=== PATIENT | male | born 1980 | race Caucasian/White ===

== ENCOUNTER 2019-07-17 15:28 | Emergency (ER) | payer OTHER, SELFPAY ==
[2019-07-17 15:45] VITALS: BP 112/74; PULSE 85; RESP 16; TEMP 36.5; O2SAT 96; BMI 32.3
--- NOTE | 2019-07-17 17:10 | DI.US.S_ITS ---
PROCEDURE: US PERIPH VENOUS LOW EXTREM RT INDICATIONS: KNEE PAIN TECHNIQUE: Real-time imaging, as well as color and pulse Doppler interrogation, were performed of the lower extremity deep veins from the inguinal ligament to the popliteal fossa. COMPARISON: [facility], CR, XR KNEE RT 3V, 07/17/2019, 17:12. FINDINGS: The common femoral, femoral and popliteal veins are normally compressible, and free of intraluminal thrombus. Color and pulse Doppler demonstrate normal phasic intraluminal flow. There is normal augmentation response to distal compression maneuver. There is a fluid collection seen superior to the patella, which measures 6.3 x 1.2 x 4 cm, which demonstrates a simple appearance. IMPRESSION: Negative for deep venous thrombosis. Simple fluid collection seen superior to the patella, which most likely relates to joint effusion. Dictated by: Jt Diehl M.D. on 07/17/2019 at 17:03 Approved by: Jt Diehl M.D. on 07/17/2019 at 17:04
--- NOTE | 2019-07-17 17:13 | DI.RAD.S_ITS ---
PROCEDURE: XR KNEE RT 3V INDICATIONS: R knee swelling and pain TECHNIQUE: 3 views of the knee were acquired. COMPARISON: [facility], , KNEE 3V RIGHT, 04/17/2014, 11:08. FINDINGS: Bones: No fractures or dislocations. No suspicious bony lesions. Soft tissues: There is a moderate joint effusion. No suspicious soft tissue calcifications. IMPRESSION: Moderate joint effusion. Dictated by: Jt Diehl M.D. on 07/17/2019 at 16:33 Approved by: Jt Diehl M.D. on 07/17/2019 at 16:34
--- NOTE | 2019-07-17 17:16 | ED.LOWEXIN ---
HPI - Extremity Injury (Lower) <BIANCA Dean - Last Filed: 07/17/19 21:49> General Chief Complaint: Extremity Injury, Lower Stated Complaint: right knee swelling and pain, trouble walking Time Seen by Provider: 07/17/19 17:04 History of Present Illness HPI Narrative: 38yo male with a history of gout, presents to the emergency department for right knee swelling for the past 5 days. Patient states he occasionally gets gout in his feet and occasionally on his left knee. He states these episodes, resolved quickly. Initially he woke up noticing right knee pain and swelling and initially thought this was gout however, the swelling continued and the pain has been increasing. Patient reports a dull aching 8/10 pain that is worse with movement and palpation. Patient states it is difficult to bend his knee due to the pain and swelling. 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 He denies any trauma to the area. Patient denies any fevers, chills, nausea, vomiting, diarrhea, chest pain, shortness of breath, history of knee injuries in the past, or any other concerns. Related Data Allergies Allergy/AdvReac Type Severity Reaction Status Date / Time shellfish derived Allergy Severe THROAT Unverified 06/17/17 12:31 [SHELLFISH DERIVED] SWELLING SEAFOOD Allergy Severe THROAT Uncoded 06/17/17 12:31 SWELLS UP Review of Systems <BIANCA Dean - Last Filed: 07/17/19 21:49> Review of Systems Narrative: REVIEW OF SYSTEMS: GENERAL: Denies fever or chills. HENT: No head trauma. CARDIOVASCULAR: No chest pain or syncope. RESPIRATORY: No shortness of breath or cough. GASTROINTESTINAL: No nausea, vomiting, diarrhea, or constipation. MUSCULOSKELETAL: Complains of right knee pain and swelling, see HPI. INTEGUMENTARY: No rash, lesions, or pruritus. Patient History <BIANCA Dean - Last Filed: 07/17/19 21:49> Medical History No significant medical problems (Acute) Social History Smoking Status: Never smoker Smoking Status: Never smoker alcohol intake frequency: holidays/special occasions only Substance Use Type: does not use Exam <BIANCA Dean - Last Filed: 07/17/19 21:49> Initial Vital Signs Initial Vital Signs: Vital Signs Temperature 97.7 F 07/17/19 15:45 Pulse Rate 85 07/17/19 15:45 Respiratory Rate 16 07/17/19 15:45 Blood Pressure 112/74 07/17/19 15:45 Pulse Oximetry 96 07/17/19 15:45 PHYSICAL EXAMINATION: GENERAL: Well groomed, alert, and cooperative. Answers questions promptly and appropriately. Vital signs noted. HENT: Normocephalic, atraumatic. EYES: Symmetrical, sclera white, no periorbital swelling. CARDIOVASCULAR: S1 and S2 sounds normal. RESPIRATORY: Normal respiratory rate, trachea midline, airway patent. No stridor, nasal flaring or accessory muscle use. MUSCULOSKELETAL: Significant swelling noted to right knee particularly around patella. Tenderness with palpation to patella, patient only able to bend his knee approximately 30? due to pain. Mild to moderate erythema, slight increased temp. Moderate right lower quadrant calf tenderness. No ankle or lower leg tenderness to palpation. EXTREMITIES: CMS intact. Pedal pulses 2+ and intact bilaterally. SKIN: Warm, dry, soft, appropriate color for ethnicity. No lesions, rashes, or wounds. NEURO: Alert and Oriented X 3. No sensory deficits. PSYCH: Appropriate affect and mood. <Fernandez Miller DO - Last Filed: 07/17/19 23:18> Initial Vital Signs Initial Vital Signs: Vital Signs Temperature 97.7 F 07/17/19 15:45 Pulse Rate 85 07/17/19 15:45 Respiratory Rate 16 07/17/19 15:45 Blood Pressure 112/74 07/17/19 15:45 Pulse Oximetry 96 07/17/19 15:45 Course <BIANCA Dean - Last Filed: 07/17/19 21:49> Course Course Narrative: Patient reports improved pain after administration ibuprofen. Orders Ordered: ED Orders 07/17/19 17:10 US periph venous low extrem rt Stat 07/17/19 17:13 XR knee RT 3V Stat 07/17/19 17:51 C-Reactive Protein Quant Stat Complete Blood Count AUTO DIFF Stat Comprehensive Metabolic Panel Stat Erythrocyte Sedimentation Rate Stat Uric Acid Stat Discontinued Medications Ibuprofen (Advil) 400 mg PO NOW ONE Stop: 07/17/19 17:44 Last Admin: 07/17/19 17:52 Dose: 400 mg Documented by: JIMMY Ketorolac Tromethamine (Toradol) 30 mg IV NOW ONE Stop: 07/17/19 17:19 Last Admin: 07/17/19 17:43 Dose: Not Given Documented by: JIMMY Consultations Consultation #1: Patient staffed with Dr. Miller, discussed, symptoms, and test results. Vital Signs Vital signs: Vital Signs - 8 hr 07/17/19 15:45 07/17/19 20:15 Temperature 97.7 F Pulse Rate 85 76 Respiratory Rate 16 18 Blood Pressure 112/74 133/91 H Pulse Oximetry 96 99 <Fernandez Miller DO - Last Filed: 07/17/19 23:18> Orders Ordered: ED Orders 07/17/19 17:10 US periph venous low extrem rt Stat 07/17/19 17:13 XR knee RT 3V Stat 07/17/19 17:51 C-Reactive Protein Quant Stat Complete Blood Count AUTO DIFF Stat Comprehensive Metabolic Panel Stat Erythrocyte Sedimentation Rate Stat Uric Acid Stat Discontinued Medications Ibuprofen (Advil) 400 mg PO NOW ONE Stop: 07/17/19 17:44 Last Admin: 07/17/19 17:52 Dose: 400 mg Documented by: JIMMY Ketorolac Tromethamine (Toradol) 30 mg IV NOW ONE Stop: 07/17/19 17:19 Last Admin: 07/17/19 17:43 Dose: Not Given Documented by: JIMMY Vital Signs Vital signs: Vital Signs - 8 hr 07/17/19 15:45 07/17/19 20:15 Temperature 97.7 F Pulse Rate 85 76 Respiratory Rate 16 18 Blood Pressure 112/74 133/91 H Pulse Oximetry 96 99 MDM - Extremity Injury (Lower) <BIANCA Dean - Last Filed: 07/17/19 21:49> Medical Records Attestation: I reviewed the patient's medical records. Lab Data Attestation: I reviewed the patient's lab results. Result diagrams: 07/17/19 17:51 07/17/19 17:51 Labs: Lab Results 07/17/19 07/17/19 07/17/19 Range/Units 17:51 17:51 17:51 WBC 8.6 (4.5-11.0) X10^3/uL RBC 4.33 L (4.5-5.9) X10^6/uL Hgb 13.2 L (13.5-17.5) g/dL Hct 38.3 L (41-53) % MCV 88.4 (80-100) fL MCH 30.6 (26-34) PG MCHC 34.5 (30-36) % RDW 12.9 (11.6-14.8) % Plt Count 273 (150-400) X10^3/uL Neut % (Auto) 70.7 (50-75) % Lymph % (Auto) 18.9 L (25-40) % [place] % (Auto) 6.7 (3-14) % Eos % (Auto) 3.4 (2-4) % Baso % (Auto) 0.3 (0-2) % Neut # (Auto) 6100 (1775-7197) /uL Lymph # (Auto) 1600 (5828-7555) /uL [place] # (Auto) 600 (0-900) /uL Eos # (Auto) 300 (0-450) /uL Baso # (Auto) 0 (0-100) /uL ESR 28 H (0-15) MM/HR Sodium 141 (137-145) mmol/L Potassium 4.3 (3.4-5.1) mmol/L Chloride 106 (98-107) mmol/L Carbon Dioxide 27 (22-32) mmol/L BUN 20 (9-20) mg/dL Creatinine 1.01 (0.66-1.25) mg/dL Estimated GFR > 60.0 (>60) mL/min BUN/Creatinine Ratio 19.8 (6-22) Glucose 117 H (70-100) mg/dL Uric Acid 6.9 (3.5-8.5) mg/dL Calcium 9.1 (8.4-10.2) mg/dL Total Bilirubin 0.4 (0.2-1.3) mg/dL AST 47 (17-59) IU/L ALT 66 H (<50) IU/L Alkaline Phosphatase 64 (38-126) U/L C-Reactive Protein 3.6 H (<1.0) mg/dL Total Protein 7.3 (6.3-8.2) g/dL Albumin 4.2 (3.5-5.0) g/dL Globulin 3.1 (1.7-4.1) g/dL Albumin/Globulin Ratio 1.4 (1.0-2.8) Imaging Data Extremity x-ray #1: Radiologist's Impression: [address] [address] XRay Report Signed Patient: Alan Jackson [facility]#: [id number] : 1980Acct:[id number] Age/Sex: 38 / MDate of Service: 07/17/19 Loc: ED Accession Number: [id number] Procedure: XR knee RT 3V Ordering Provider: Francesca Berman PROCEDURE: XR KNEE RT 3V INDICATIONS: R knee swelling and pain TECHNIQUE: 3 views of the knee were acquired. COMPARISON: [facility], KNEE 3V RIGHT, 04/17/2014, 11:08. FINDINGS: Bones: No fractures or dislocations. No suspicious bony lesions. Soft tissues: There is a moderate joint effusion. No suspicious soft tissue calcifications. IMPRESSION: Moderate joint effusion. Dictated by: Jt Diehl M.D. on 07/17/2019 at 16:33 Approved by: Jt Diehl M.D. on 07/17/2019 at 16:34 US - DVT: Radiologist's Impression: [address] [place] [id number] Ultrasound Report Signed Patient: Alan Jackson [facility]#: [id number] : 1980Acct:[id number] Age/Sex: 38 / MDate of Service: 07/17/19 Loc: ED Accession Number: [id number] Procedure: US periph venous low extrem rt Ordering Provider: Francesca Berman PROCEDURE: US PERIPH VENOUS LOW EXTREM RT INDICATIONS: KNEE PAIN TECHNIQUE: Real-time imaging, as well as color and pulse Doppler interrogation, were performed of the lower extremity deep veins from the inguinal ligament to the popliteal fossa. COMPARISON: [facility], XR KNEE RT 3V, 07/17/2019, 17:12. FINDINGS: The common femoral, femoral and popliteal veins are normally compressible, and free of intraluminal thrombus. Color and pulse Doppler demonstrate normal phasic intraluminal flow. There is normal augmentation response to distal compression maneuver. There is a fluid collection seen superior to the patella, which measures 6.3 x 1.2 x 4 cm, which demonstrates a simple appearance. IMPRESSION: Negative for deep venous thrombosis. Simple fluid collection seen superior to the patella, which most likely relates to joint effusion. Dictated by: Jt Diehl M.D. on 07/17/2019 at 17:03 Approved by: Jt Diehl M.D. on 07/17/2019 at 17:04 [facility] Narrative Medical decision making narrative: 38-Male presents emergency department for nontraumatic right knee swelling. Suspect patient's symptoms are most likely caused by bursitis due to age of swelling, patient reports that he kneels often at work, and lack of other concerning symptoms such as fever or direct trauma. Additionally, patient has elevated inflammatory markers. Less likely septic joint, patient's has a normal white blood cell count and no signs of infection such as fever, tachycardia, or general malaise. Suspect some systemic signs since this has been ongoing for 4-5 days. Less likely gout due to normal uric acid and this is inconsistent with patient's previous episodes of gout Less likely arthritis the swelling appears to be above and external to the joint. Less likely DVT, Dodge cyst, or fracture to due lack of concerning findings on imaging. Patient was encouraged to take NSAIDs and use an Sagar wrap to help with inflammation and swelling. He was referred to his primary care provider for further follow-up. Patient agreed to plan of care verbalized understanding. <Fernandez Miller DO - Last Filed: 07/17/19 23:18> Lab Data Labs: Lab Results 07/17/19 07/17/19 07/17/19 Range/Units 17:51 17:51 17:51 WBC 8.6 (4.5-11.0) X10^3/uL RBC 4.33 L (4.5-5.9) X10^6/uL Hgb 13.2 L (13.5-17.5) g/dL Hct 38.3 L (41-53) % MCV 88.4 (80-100) fL MCH 30.6 (26-34) PG MCHC 34.5 (30-36) % RDW 12.9 (11.6-14.8) % Plt Count 273 (150-400) X10^3/uL Neut % (Auto) 70.7 (50-75) % Lymph % (Auto) 18.9 L (25-40) % [place] % (Auto) 6.7 (3-14) % Eos % (Auto) 3.4 (2-4) % Baso % (Auto) 0.3 (0-2) % Neut # (Auto) 6100 (8254-0828) /uL Lymph # (Auto) 1600 (5965-7071) /uL [place] # (Auto) 600 (0-900) /uL Eos # (Auto) 300 (0-450) /uL Baso # (Auto) 0 (0-100) /uL ESR 28 H (0-15) MM/HR Sodium 141 (137-145) mmol/L Potassium 4.3 (3.4-5.1) mmol/L Chloride 106 (98-107) mmol/L Carbon Dioxide 27 (22-32) mmol/L BUN 20 (9-20) mg/dL Creatinine 1.01 (0.66-1.25) mg/dL Estimated GFR > 60.0 (>60) mL/min BUN/Creatinine Ratio 19.8 (6-22) Glucose 117 H (70-100) mg/dL Uric Acid 6.9 (3.5-8.5) mg/dL Calcium 9.1 (8.4-10.2) mg/dL Total Bilirubin 0.4 (0.2-1.3) mg/dL AST 47 (17-59) IU/L ALT 66 H (<50) IU/L Alkaline Phosphatase 64 (38-126) U/L C-Reactive Protein 3.6 H (<1.0) mg/dL Total Protein 7.3 (6.3-8.2) g/dL Albumin 4.2 (3.5-5.0) g/dL Globulin 3.1 (1.7-4.1) g/dL Albumin/Globulin Ratio 1.4 (1.0-2.8) Discharge Plan Departure Patient Disposition: Home Clinical Impression: Bursitis Qualifiers: Bursitis location: knee Knee bursitis location: suprapatellar bursitis Laterality: right Qualified Code(s): M70.51 - Other bursitis of knee, right knee Effusion of knee Qualifiers: Laterality: right Qualified Code(s): M25.461 - Effusion, right knee Discharge Date/Time: 07/17/19 20:15 Instructions: DI for Bursitis Activity Restrictions/Additional Instructions: Thank you for entrusting me with your care today. As discussed, your x-ray and ultrasound are negative for any concerning findings. Your laboratory work did not show any signs of infection or gout. However, your inflammatory markers were elevated which is consistent with possible bursitis. Please use the Sagar bandage for the next 1-2 week. Take 500 mg of naproxen every 12 hours for the next 3-4 days to help with swelling, inflammation, and pain (this medication is available [id number]). Please follow-up up with your primary care provider or the orthopedic listed below. Return emergency department immediately for any new or worsening symptoms such as increasing swelling, increased redness, fevers, chills, worsening pain, or any other concerns. Referrals: Beltran Hernández PA-C [Advanced Corporate Counselor] - Nae Birmingham [Primary Care Provider] - Stand Alone Forms: Work Release Note <Fernandez Miller, DO - Last Filed: 07/17/19 23:18> Cosign ED Attending Cosignature Attestation: Dr Miller Co-Sign Statement: I was available for consultation during this patient's emergency department visit. This chart is signed by myself for administrative purposes only. I did not have direct contact with this patient during this visit. They were seen independently by the APC.
[2019-07-17] MEDS: IBUPROFEN 400 MG TABLET PO (17:52)
[2019-07-17 17:59] LABS: Add Manual Diff / Slide Review NO; Basophils Absolute Auto 0 /uL (0-100); Basophils Percent Auto 0.3 % (0-2); Eosinophils Absolute Auto 300 /uL (0-450); Eosinophils Percent Auto 3.4 % (2-4); Hematocrit 38.3 % (41-53); Hemoglobin 13.2 g/dL (13.5-17.5); Lymphocytes Absolute Auto 1600 /uL (1100-4500); Lymphocytes Percent Auto 18.9 % (25-40); Mean Corpuscular HGB Conc 34.5 % (30-36); Mean Corpuscular Hemoglobin 30.6 PG (26-34); Mean Corpuscular Volume 88.4 fL (80-100); Monocytes Absolute Auto 600 /uL (0-900); Monocytes Percent Auto 6.7 % (3-14); Neutrophils Absolute Auto 6100 /uL (1500-7000); Neutrophils Percent Auto 70.7 % (50-75); Platelet Count 273 X10^3/uL (150-400); Red Blood Cell Count 4.33 X10^6/uL (4.5-5.9); Red Cell Distribution Width 12.9 % (11.6-14.8); White Blood Cell Count 8.6 X10^3/uL (4.5-11.0)
[2019-07-17 18:17] LABS: Erythrocyte Sedimentation Rate 28 MM/HR (0-15)
[2019-07-17 18:20] LABS: Alanine Aminotransferase 66 IU/L (<50); Albumin 4.2 g/dL (3.5-5.0); Albumin Globulin Ratio 1.4 (1.0-2.8); Alkaline Phosphatase 64 U/L (38-126); Aspartate Aminotransferase 47 IU/L (17-59); BUN Creatinine Ratio 19.8 (6-22); Bilirubin Total 0.4 mg/dL (0.2-1.3); Blood Urea Nitrogen 20 mg/dL (9-20); C-Reactive Protein Quant 3.6 mg/dL (<1.0); Calcium 9.1 mg/dL (8.4-10.2); Carbon Dioxide 27 mmol/L (22-32); Chloride 106 mmol/L (98-107); Estimated Glomerular Filt Rate > 60.0 mL/min (>60); Globulin 3.1 g/dL (1.7-4.1); Glucose 117 mg/dL (70-100); HEMOLYSIS < 15 (0-50); Potassium 4.3 mmol/L (3.4-5.1); Sodium 141 mmol/L (137-145); Total Protein 7.3 g/dL (6.3-8.2); Uric Acid 6.9 mg/dL (3.5-8.5)
[2019-07-17 20:15] VITALS: BP 133/91; PULSE 76; RESP 18; O2SAT 99
== END 2019-07-17 20:15 | disposition home or self-care (01) ==
PROVIDERS: Emergency Provider Nurse Practitioner; Family Provider Nurse Practitioner Family; PCP Nurse Practitioner Family
DX: M70.51 Other bursitis of knee, right knee (principal); M25.461 Effusion, right knee
CPT/HCPCS: 36415; 73562; 80053; 84550; 85025; 85651; 86140; 93971; 99284

== ENCOUNTER → 2019-08-12 09:39 | Outpatient (CLI) | payer OTHER, SELFPAY ==
--- NOTE | 2019-08-12 | DI.US.S_ITS ---
PROCEDURE: US SCROTUM INDICATIONS: TESTICULAR MASS,RIGHT TECHNIQUE: Real-time scanning was performed of the scrotum and testicles, with image documentation. Color and pulse Doppler interrogation was performed of both testicles. COMPARISON: None. FINDINGS: Right: Testicle is normal in size at 4.5 x 2.2 x 2.6 cm, and homogenous in echotexture. Epididymis is normal in overall size. Epididymal cysts are seen that measure up to 4 mm. The palpable lump corresponds to the right epididymal head. There is a small right-sided hydrocele. Overlying scrotal skin is normal in thickness. Left: Testicle is normal in size at 4.2 x 2.1 x 2.9 cm, and homogeneous in echotexture. Epididymis is normal in overall size and morphology. There is a small left-sided hydrocele. Overlying scrotal skin is normal in thickness. Doppler: Color and pulse Doppler demonstrate normal and symmetric arterial flow in both testicles. Bilateral varicoceles are seen. IMPRESSION: No testicular masses are seen. The palpable lump corresponds to the left epididymis. Small epididymal cysts are seen. Small bilateral hydroceles are seen. Bilateral varicoceles are also present. Dictated by: Jt Diehl M.D. on 08/12/2019 at 11:17 Approved by: Jt Diehl M.D. on 08/12/2019 at 11:19
== END ==
PROVIDERS: Family Provider Nurse Practitioner Family; PCP Nurse Practitioner Family; Referring Provider Registered Nurse; Visit Provider Registered Nurse
DX: N50.3 Cyst of epididymis (principal); N43.3 Hydrocele, unspecified; I86.1 Scrotal varices
CPT/HCPCS: 76870

== ENCOUNTER 2024-07-25 00:26 | Emergency (ER) | payer MEDICARE, SELFPAY ==
[2024-07-25 00:31] VITALS: BP 163/103; PULSE 84; O2SAT 98
[2024-07-25 00:35] VITALS: BP 163/103; PULSE 85; RESP 20; TEMP 36.6; O2SAT 97; BMI 33.7
[2024-07-25 01:00] VITALS: BP 123/83; PULSE 86; O2SAT 95
[2024-07-25 01:30] VITALS: BP 131/84; PULSE 73; RESP 18; O2SAT 94
--- NOTE | 2024-07-25 01:40 | DI.US.S_ITS ---
PROCEDURE: US SCROTUM INDICATIONS: RIGHT NUMBNESS TECHNIQUE: Real-time scanning was performed of the scrotum and testicles, with image documentation. Color and pulse Doppler interrogation was performed of both testicles. COMPARISON: [facility], , US SCROTUM, 08/12/2019, 10:11. FINDINGS: Right: Testicle is normal in size at 4.2 x 2.7 x 3.1 cm, and homogenous in echotexture. Epididymis is normal in overall size and morphology. Small epididymal cyst measuring 2.4 mm. Small hydrocele. No varicoceles. Overlying scrotal skin is normal in thickness. Left: Testicle is normal in size at 3.2 x 1.7 x 2.8 cm, and homogeneous in echotexture. Epididymis is normal in overall size and morphology. Small hydrocele. No varicoceles. Overlying scrotal skin is normal in thickness. Doppler: Color and pulse Doppler demonstrate normal and symmetric arterial flow in both testicles. IMPRESSION: 1. Normal appearance of the testes and epididymides. 2. Small bilateral hydroceles. 3. Small simple epididymal cyst on the right measuring 2 mm. Findings are concordant with preliminary interpretation provided by [facility]. Dictated by: Chris Pappas M.D. on 07/25/2024 at 9:00 Approved by: Chris Pappas M.D. on 07/25/2024 at 9:01
--- NOTE | 2024-07-25 01:40 | ED.MALEGU ---
HPI - Male Genitourinary General Chief complaint: Urogenital-Male Stated complaint: Numbness in groin, Hard mass lower rt by hip Time Seen by Provider: 07/25/24 01:30 Source: patient Mode of arrival: Ambulatory History of Present Illness HPI Narrative: Patient is a 43-year-old male without significant past medical history presenting today with right testicular abnormality. He reports that he has some numbness in his right inguinal ligament area. He has no numbness in his leg he feels like there is swelling in his right testicle but denies any kind of pain. No significant right lower quadrant pain or flank pain. No nausea or vomiting. He says sometimes he does get some pain numbness discomfort in the right groin area but it is resolved with a bowel movement. He did take a bottle of magnesium citrate earlier today he had a bowel movement and the feeling has persisted. No trouble urinating. No nausea or fever. He reports he did have something similar years ago. Records show that he had an epididymal cyst. He denies any kind of back pain. Related Data Allergies Allergy/AdvReac Type Severity Reaction Status Date / Time shellfish derived Allergy Severe THROAT Unverified 06/17/17 12:31 [SHELLFISH DERIVED] SWELLING SEAFOOD Allergy Severe THROAT Uncoded 06/17/17 12:31 SWELLS UP Patient History Medical History (Updated 07/25/24 @ 03:09 by Ellie Spangler DO) No significant medical problems Social History Smoking Status: Never smoker Smoking Status: Never smoker alcohol intake frequency: holidays/special occasions only Exam Initial Vital Signs Initial Vital Signs: Vital Signs Pulse Rate 84 07/25/24 00:31 Blood Pressure 163/103 H 07/25/24 00:31 Pulse Oximetry 98 07/25/24 00:31 GENERAL: Alert well-appearing 43-year-old male and in no acute distress. HEENT: Head atraumatic,EOMI, pupils reactive, face symmetric, moist mucous membranes CARDIOVASCULAR: Regular rate and rhythm without murmurs, rubs or gallops. RESPIRATORY: Breath sounds equal bilaterally, no wheezes rales or rhonchi. ABDOMEN: Soft, nontender. Normoactive bowel sounds all 4 quadrants. No guarding or rebound. No significant right lower quadrant pain no flank pain no left lower quadrant pain : No CVA tenderness, nurse Gracie present, Mike feel like there is a small hernia present on the right side no significant tenderness or erythema the right testicle no hernia present on the left side EXTREMITIES: Normal range of motion, no clubbing or edema. Neurovascularly intact NEUROLOGICAL: Alert and oriented x4.Normal gait and speech. Cranial nerves II through XII grossly intact. SKIN: Warm, dry, no laceration, no petechiae, no rashes or lesions. Course Orders Ordered: ED Orders 07/25/24 01:40 US scrotum Stat Vital Signs Vital signs: Vital Signs - 8 hr 07/25/24 00:31 07/25/24 00:31 07/25/24 00:35 Temperature 97.9 F Pulse Rate 84 85 Respiratory Rate 20 Blood Pressure 163/103 H 163/103 H Pulse Oximetry 98 97 Oxygen Delivery Method Room Air 07/25/24 01:00 07/25/24 01:00 07/25/24 01:30 Temperature Pulse Rate 86 Respiratory Rate Blood Pressure 123/83 131/84 Pulse Oximetry 95 Oxygen Delivery Method 07/25/24 01:30 07/25/24 03:17 Temperature Pulse Rate 73 74 Respiratory Rate 18 16 Blood Pressure 128/78 Pulse Oximetry 94 100 Oxygen Delivery Method Room Air MDM - Male Genitourinary Lab Data Labs: Urine Dip Bedside Urine Glucose Negative Bedside Urine Bilirubin - Negative Bedside Urine Ketone - Negative Urine Specific [place] 1.005 Bedside Urine Occult Blood - Negative Bedside Urine pH 6 Bedside Urine Protein - Negative Bedside Urine Urobilinogen - Negative Bedside Urine Nitrite - Negative Bedside Urine Leukocytes - Negative Esterase Imaging Data US scrotum: Radiologist's Impression: Preliminary report: No sonographic evidence of testicular torsion epididymitis orchitis or solid or intra or extra drop testicular mass. Right epididymal cyst MDM Narrative Medical decision making narrative: Patient 43-year-old male presenting today with ready symptoms. Sounds like he was got this in his groin and feels like he might have a right testicular mass. Possible hernia felt on exam but no obvious mass or significant swelling. Abdomen is soft and nontender. Overall appears well and nontoxic Urine is clear Ultrasound does show epididymal cyst He was offered pain medication but declines at this time At this time recommend outpatient follow up with Urology. Does not really seem to be complaining of abdominal pain abdomen is pressed on and he reports non tenderness no peritoneal signs. Possible hernia present initially on testicular exam or ultrasound shows a right epididymal cyst no hernia identified on ultrasound. Patient offered pain medication but declined. Again Re question if he is having right lower quadrant pain which he again declines. Abdomen is soft nontender. At this time hold off on blood work and CT scan. Discharge Plan Departure Patient Disposition: Home Clinical Impression: Cyst of epididymis Instructions: Epididymitis Activity Restrictions/Additional Instructions: *You have been diagnosed with epididymal cyst *What to do: At this time you have a cyst on a location in your testicle. It was not a mass he was no significant abnormality it should not be causing you numbness *Continue to take medications as directed Tylenol Motrin as needed *Follow up with your primary care provider in 2-3 days or call [phone] *Return to ER if you should have increasing pain swelling redness fever [or] any new, worsening or concerning symptoms Referrals: Arnol Gold DO [Physician] - Nae Birmingham FNP-C [Primary Care Provider] - Migue Coto MD [Physician] - Stand Alone Forms: Patient Portal/API/Survey
--- NOTE | 2024-07-25 01:48 | PC.NURSE ---
pt has swelling noted above the right testicle, c/o feeling numb inside under the swollen area, pt states this has happened before but the swelling went away, pt tried took OTC pain mediation and mag citrate which has not relieved the swelling or numbness, pt denies any pain or tenderness to the area
[2024-07-25 03:17] VITALS: BP 128/78; PULSE 74; RESP 16; O2SAT 100
== END 2024-07-25 03:18 | disposition home or self-care (01) ==
PROVIDERS: Emergency Provider Emergency Medicine; Family Provider Nurse Practitioner Family; PCP Nurse Practitioner Family
DX: N50.3 Cyst of epididymis (principal)
CPT/HCPCS: 76870; 81003; 93975; 99282; 99283